=== PATIENT | male | born 1990 | race Native Hawaiian/Other Pacific Islander ===

== ENCOUNTER 2022-08-01 20:51 | Outpatient (CLI) | payer OTHER, SELFPAY | END 2022-08-01 20:52 | disposition home or self-care (01) | LOC: AMB 08-08 02:00 | PROVIDERS: Visit Provider Emergency Medicine | DX: S69.91XA Unspecified injury of right wrist, hand and finger(s), initial encounter (principal); W18.30XA Fall on same level, unspecified, initial encounter; Y92.007 Garden or yard of unspecified non-institutional (private) residence as the place of occurrence of the external cause | CPT/HCPCS: A0425; A0429 ==

== ENCOUNTER 2022-08-01 21:17 | Emergency (ER) | payer OTHER, SELFPAY ==
--- NOTE | 2022-08-01 21:34 | CRLHL7_ITS ---
For Patients: As a result of the Cures Act, medical imaging exams and procedure reports are released immediately into your electronic medical record. You may view this report before your referring provider. If you have questions, please contact your health care provider. Indication: Trauma. Technique: Right hand, 3 views. Comparison: None. Findings: Bones: Alignment is normal. No fractures or bone lesions. Joint spaces: Unremarkable. Soft tissues: Unremarkable. Impression: No acute fracture or dislocation. Dictated by Bertha Jauregui MD @ 08/01/2022 11:12:26 PM (Electronically Signed)
[2022-08-01 21:46] VITALS: BP 124/63; PULSE 83; RESP 18; O2SAT 96; BMI 22.8
[2022-08-01] MEDS: KETOROLAC 30 MG/ML inj IM (22:19)
--- NOTE | 2022-08-01 22:42 | ED_ITS ---
HPI - General Adult General Date Seen: 08/01/22 Chief complaint: Fall/Minor Trauma Stated complaint: MCI-Finger Lac Time Seen by Provider: 08/01/22 21:29 Source: patient Mode of arrival: ambulatory Limitations: language barrier History of Present Illness HPI narrative: Patient is a 31-year-old male here with significant other who is helping to do a little bit of interpreting. He does speak reasonably good Polish. He was involved in a deck collapse with multiple other people. He says he tried to grab a child to get them out of the way as the deck collapsed and in the process he injured his right hand. He initially reported that he could not feel or move his 4th or 5th finger on the right hand and was concerned that he had broken both fingers. He does have a laceration noted that involves the nail of the 4th finger. He is right-handed. Last tetanus was 2011. No other injuries or complaints. Related Data Home Medications Medication Instructions Recorded Confirmed No Known Home Medications 08/01/22 08/01/22 Allergies Allergy/AdvReac Type Severity Reaction Status Date / Time No Known Drug Allergies Allergy Verified 08/01/22 21:48 Review of Systems Status of ROS: Reports: 6 or more systems reviewed and unremarkable except as noted in History and below [facility] Social History Smoking Status: Never smoker Do you use any of these nicotine containing products: None Second hand tobacco smoke exposure: No How often do you have a drink containing alcohol: never How often do you have six or more drinks on one occasion: Never AUDIT-C Alcohol total score: 0 Non-prescribed substance use: denies use service: No Exam Narrative: Exam Narrative: Vital signs as noted above. In general, an alert, well-appearing patient. Head: Normocephalic, atraumatic. Eyes: Pupils are equal reactive. Extraocular movements are full. Conjunctivae are normal. ENT: Mucous membranes are moist. Throat is normal. Neck: Supple without lymphadenopathy. Heart: Regular rate and rhythm. No murmur or rub. Lungs: Clear bilaterally. No increased work of breathing, crackles or wheezes. Abdomen: Soft and nontender. No organomegaly. Extremities: Well perfused. The right hand is bandaged. When I initially removed the bandage, the 4th and 5th fingers were held in passive flexion. He said that he could not move them. There is a laceration partially into the nail which appears to be secondary to a crush type injury, but the nail is still firmly adhered to the nail bed. Bleeding is controlled. Fourth and 5th finger were diffusely tender but there is no swelling, no deformity. Neurologic: Patient is alert and oriented to person and place. Speech is fluent. Face is symmetric. He says he cannot move the 4th or 5th finger as noted above. He noted decreased sensation to light touch of the 4th finger, saying that he could not feel it at all, but did complain of significant pain at the nail. He had intact sensation of the ulnar aspect of the 5th finger but said it was absent over the radial aspect of the 5th finger. Affect: Normal. Skin: Warm and dry. Well perfused. Const: Vital Signs, click to edit/add: Vital Signs - 24 hr 08/01/22 21:46 08/01/22 22:50 Pulse Rate [Left P ulse Oximeter] 83 82 Respiratory Rate 18 Blood Pressure [Le ft Upper Arm] 124/63 119/85 Pulse Oximetry 96 97 Oxygen Delivery Me thod Room Air Room Air Documenting provider has reviewed patient's vital signs: yes Course Course Hospital Course: Patient had IM Toradol for pain control and his tetanus was updated. I cleaned of the nail bed area, discussed that we could remove the entire nail, but I do not think it is necessary. I think this will heal without doing that. Discussed that it will take 3-4 months for the nail to grow out completely in the meantime there will be a section of nail that he will have to trim to keep it from catching on things. Nail may grow slightly unevenly if the nail bed heals irregularly. He had x-rays of the right hand, I did note on x-ray that he seemed to be positioning the hand without difficulty, and on recheck, he is moving the 4th and 5th finger without difficulty and says that the sensation seems to have returned to normal. X-rays of the right hand by my review are negative. Final radiology review is pending. Will put a dressing and a splint on the 4th finger to protect that area. Vital Signs Vital signs: Initial Vital Signs Pulse Rate 83 08/01/22 21:46 Pulse Rhythm Regular 08/01/22 21:46 Pulse Strength 3+ Normal 08/01/22 21:46 Respiratory Rate 18 08/01/22 21:46 Blood Pressure 124/63 08/01/22 21:46 Blood Pressure Mean 83 08/01/22 21:46 Blood Pressure Position Sitting 08/01/22 21:46 Pulse Oximetry 96 08/01/22 21:46 Oxygen Delivery Method Room Air 08/01/22 21:46 Vital Signs Pulse Rate 83 08/01/22 21:46 Respiratory Rate 18 08/01/22 21:46 Blood Pressure 124/63 08/01/22 21:46 Pulse Oximetry 96 08/01/22 21:46 Oxygen Delivery Method Room Air 08/01/22 21:46 Pulse Rate 82 08/01/22 22:50 Respiratory Rate 18 08/01/22 21:46 Blood Pressure 119/85 08/01/22 22:50 Pulse Oximetry 97 08/01/22 22:50 Oxygen Delivery Method Room Air 08/01/22 22:50 Discharge Plan Discharge Clinical Impression: Laceration of finger nail bed Patient Disposition: Home, Self-Care Condition: Stable Instructions: Finger Laceration (ED), Laceration Without Closure (ED) Additional Instructions: I would recommend leaving this dressing in place for the next few days unless you are having significant pain in which case you should checked to make sure there are no signs of infection. Otherwise, ibuprofen or Tylenol as needed. Be aware that it will take several months for the nail to fully grow out and as it does so you will need to keep the nail short so that the section that is cut does not catch on things and tear. Return for signs of infection. Prescriptions: No Action No Known Home Medications Follow Up/Referrals: Provider,Not a Local [Primary Care Provider] - Stand Alone Forms: MyHealth Info Instructions
[2022-08-01] MEDS: TETANUS/DIPHTH/PERTUSSIS 0.5 ML SYRINGE IM (22:47)
[2022-08-01 22:50] VITALS: BP 119/85; PULSE 82; O2SAT 97
== END 2022-08-01 23:53 | disposition home or self-care (01) ==
PROVIDERS: Emergency Provider Emergency Medicine
DX: S61.314A Laceration without foreign body of right ring finger with damage to nail, initial encounter (principal); W26.9XXA Contact with unspecified sharp object(s), initial encounter
CPT/HCPCS: 29130; 73130; 90471; 90715; 96372; 99283; 99284; J1885